=== PATIENT | female | born 1990 | race Caucasian/White ===

== ENCOUNTER 2016-07-08 10:41 | Emergency (ER) | payer BC ==
[2016-07-08 10:48] VITALS: BP 128/95; PULSE 108; RESP 20; TEMP 97.5
[2016-07-08] MEDS ORDERED: KETOROLAC 60 MG/2 ML VIAL IM STA (10:58)
[2016-07-08] MEDS ORDERED: ORPHENADRINE 30 MG/ML 2 ML VIAL IM STA (10:58)
--- NOTE | 2016-07-08 11:01 | ED ---
Back Pain HPI - General Chief Complaint: Back Pain/Injury Stated Complaint: Fall Time Seen by Provider: 07/08/16 10:49 Source: patient Limitations: no limitations - History of Present Illness Initial Comments: 25-year-old female patient presents to emergency department today for complaints of lower back pain that radiates down her left leg. Patient states that she has been having ongoing back pain for the last month and has been seeing a chiropractor for this. Patient states that yesterday she did experience to fall at work where she slipped and went to her knees. Patient states that this did not increase her back pain at all. She states when she got home however she sat down in a chair when she tried to get back up the pain in her back became more sharp and worse than it has been. Patient states that whenever she tries to stand up or sit down the pain increases, she states when she twists the pain worsens as well. Patient denies any loss of bowel or bladder control. Patient denies any saddle paresthesia. She denies any numbness or tingling in her legs. She denies any headache, dizziness, chest pain, weakness, abdominal pain, nausea, vomiting, constipation, diarrhea, hematuria, dysuria, urinary frequency, or urinary urgency. Patient denies any significant knee pain. - Related Data Previous Rx's Medication Instructions Recorded Acetaminophen-Codeine 300-30mg 1 each PO Q4H PRN #20 tablet 11/29/14 [Tylenol w/codeine #3] Acetaminophen-Codeine 300-30mg 1 tab PO Q4H PRN #20 tablet 07/08/16 [Tylenol #3] Cyclobenzaprine [Flexeril] 5 mg PO TID PRN #15 tablet 07/08/16 methylPREDNISolone [Medrol Dose 4 mg PO DIRECTED #1 pack 07/08/16 Pack] Allergies Allergy/AdvReac Type Severity Reaction Status Date / Time No Known Allergies Allergy Verified 07/08/16 10:48 Review of Systems ROS Statement: Those systems with pertinent positive or pertinent negative responses have been documented in the HPI. ROS Other: All systems not noted in ROS Statement are negative. Past Medical History Past Medical History: No Reported History Additional Past Medical History / Comment(s): back pain History of Any Multi-Drug Resistant Organisms: None Reported Past Surgical History: Orthopedic Surgery Additional Past Surgical History / Comment(s): Right elbow Past Psychological History: No Psychological Hx Reported Smoking Status: Current every day smoker Past Alcohol Use History: None Reported Past Drug Use History: Marijuana General Exam Limitations: no limitations General appearance: alert, in no apparent distress Head exam: Present: atraumatic, normocephalic, normal inspection Eye exam: Present: normal appearance, PERRL, EOMI. Absent: scleral icterus, conjunctival injection, periorbital swelling ENT exam: Present: normal exam, normal oropharynx, mucous membranes moist Neck exam: Present: normal inspection, full ROM. Absent: tenderness, meningismus, lymphadenopathy Respiratory exam: Present: normal lung sounds bilaterally. Absent: respiratory distress, wheezes, rales, rhonchi, stridor Cardiovascular Exam: Present: regular rate, normal rhythm, normal heart sounds. Absent: systolic murmur, diastolic murmur, rubs, gallop, clicks GI/Abdominal exam: Present: soft, normal bowel sounds. Absent: distended, tenderness, guarding, rebound, rigid Extremities exam: Present: full ROM, normal capillary refill. Absent: normal inspection (Light brown bruising noted to left anterior knee), tenderness, pedal edema, joint swelling, calf tenderness Back exam: Present: normal inspection. Absent: full ROM (Decreased forward flexion and hyperextension due to pain with movement), tenderness, CVA tenderness (R), CVA tenderness (L) Neurological exam: Present: alert, oriented X3, CN II-XII intact Psychiatric exam: Present: normal affect, normal mood Skin exam: Present: warm, dry, intact, normal color. Absent: rash Course Vital Signs 07/08/16 10:46 Temperature 97.5 F L Pulse Rate 108 H Respiratory 20 Rate Blood Pressure 128/95 O2 Sat by Pulse 99 Oximetry Medical Decision Making - Medical Decision Making 25-year-old female patient presents to emergency today for evaluation of low back pain. Patient had been having the back pain for the last month, but symptoms worsened yesterday. Symptoms are consistent with sciatica, physical exam is unremarkable. Patient be discharged home with a prescription for Tylenol with Codeine, Flexeril, and a Medrol Dosepak, as well as instructions for low back exercises, and application of warm moist heat to the area. Patient is instructed to follow-up with the primary care physician in one to 2 days of her symptoms haven't started to improve. Patient is instructed to return for any worsening, new, or concerning symptoms. Patient verbalizes understanding and agrees this plan. Disposition Clinical Impression: Sciatica, Low back pain Disposition: HOME SELF-CARE Condition: Stable Instructions: Acute Low Back Pain (ED), Sciatica (ED), Lower Back Exercises (ED ) Additional Instructions: Take steroid prescription and full. Follow-up with primary care physician in one to 2 days for recheck. Return for any worsening, new, or concerning symptoms. Prescriptions: Acetaminophen-Codeine 300-30mg [Tylenol #3] 1 tab PO Q4H PRN #20 tablet PRN Reason: pain Cyclobenzaprine [Flexeril] 5 mg PO TID PRN #15 tablet PRN Reason: Muscle Spasm methylPREDNISolone [Medrol Dose Pack] 4 mg PO DIRECTED #1 pack Referrals: Teodora Gonzalez MD [REFERRING] - 1-2 days Time of Disposition: 11:02
== END 2016-07-08 11:19 | disposition home or self-care (01) ==
LOC: EC 10:41
DX: M54.42 Lumbago with sciatica, left side (principal); F17.200 Nicotine dependence, unspecified, uncomplicated; W01.0XXA Fall on same level from slipping, tripping and stumbling without subsequent striking against object, initial encounter; Y99.0 Civilian activity done for income or pay
CPT/HCPCS: 96372 ×2; 99283; J2360; J1885

== ENCOUNTER 2018-01-10 09:59 | Emergency (ER) | payer OTHER, BC ==
[2018-01-10 10:03] VITALS: RESP 18
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
--- NOTE | 2018-01-10 10:38 | XR ---
EXAMINATION TYPE: XR chest 2V DATE OF EXAM: 01/10/2018 COMPARISON: November 29, 2014 HISTORY: Chest pain TECHNIQUE: Frontal and lateral views of the chest are obtained. FINDINGS: There is no focal air space opacity. No evidence for pneumothorax. No pleural effusion. The cardiac silhouette size is within normal limits. The osseous structures are grossly intact. IMPRESSION: 1. No acute cardiopulmonary process.
[2018-01-10] MEDS ORDERED: Acetaminophen-Codeine 300-30mg TAB PO STA (11:23)
[2018-01-10 11:45] VITALS: BP 119/70; PULSE 83; TEMP 99.5
== END 2018-01-10 11:45 | disposition home or self-care (01) ==
LOC: EC 09:59
DX: S01.81XA Laceration without foreign body of other part of head, initial encounter (principal); S01.511A Laceration without foreign body of lip, initial encounter; S20.219A Contusion of unspecified front wall of thorax, initial encounter; F17.200 Nicotine dependence, unspecified, uncomplicated; V49.40XA Driver injured in collision with unspecified motor vehicles in traffic accident, initial encounter; Y92.89 Other specified places as the place of occurrence of the external cause
CPT/HCPCS: 71046; 93005; 99284